=== PATIENT | female | born 1935 | race Caucasian/White ===

== ENCOUNTER 2021-12-15 10:08 | Inpatient (IN) | payer MEDICARE, MEDICAID ==
[~2021-12-15] VITALS: Ht 162.6 cm; Wt 69.4 kg
[~2021-12-15 10:08] MED LIST: CHOL200077 MT; CRAN400C MT; CYAN-33 PO; LISI2.5T47 MT; METF-414 MT; RISP05 MT; SITA50TA3 MT; TOPUD PO
[2021-12-15 12:47] LABS: BASOPHILS % 0.5 % (0.0-2.0); EOSINOPHILS % 1.4 % (0.0-5.0); HEMATOCRIT. 42.5 % (36.0-48.0); HEMOGLOBIN. 14.1 g/dL (12.0-16.0); LYMPHOCYTES % 17.5 % (20.0-50.0); MEAN CORPUSCULAR HEMOGLOBIN 27.5 pg (28.0-32.0); MEAN CORPUSCULAR VOLUME 82.9 fL (81.0-99.0); MEAN PLATELET VOLUME 9.4 fl (7.4-10.4); NEUTROPHILS % 73.6 % (40.0-76.0); PLATELET 274 x1000/uL (130-400); RED BLOOD CELL COUNT 5.13 mill/uL (4.2-5.4); RED CELL DISTRIBUTION WIDTH 12.7 % (11.6-14.6)
[2021-12-15 12:55] LABS: CHLORIDE 107 mEq/L (98-107)
[2021-12-15] MEDS ORDERED: HALOPERIDOL LACTATE 5MG/ML VIAL IM ONE (16:30)
[2021-12-16] MEDS: LORAZEPAM 2MG/ML CPJ IV PRN ×2 (02:38→11:44)
[2021-12-16] MEDS ORDERED: ONDANSETRON HCL 4MG/2ML INJ IV PRN (08:15)
[2021-12-16] MEDS ORDERED: ACETAMINOPHEN 325MG TABLET PO PRN (08:15)
[2021-12-16 09:14] VITALS: BP 149/60
[2021-12-16 09:30] VITALS: BP 149/60
[2021-12-16] MEDS: RISPERIDONE 1MG TABLET PO SCH ×2 (11:00→11:19)
[2021-12-16 12:00] VITALS: BP_SYST 159; BP_SYST 193; BP_DIAS 158; BP_DIAS 58
[2021-12-16 16:00] VITALS: BP 165/66
[2021-12-16] MEDS ORDERED: HYDRALAZINE 20MG/ML VIAL IV PRN (18:00)
[2021-12-16] MEDS: SODIUM CHLORIDE 0.45% 1,000 ML IV SCH (18:22)
[2021-12-16 20:00] VITALS: BP 118/61
[2021-12-17] VITALS: BP 144/65
[2021-12-17 04:00] VITALS: BP 123/74
[2021-12-17] MEDS: SODIUM CHLORIDE 0.45% 1,000 ML IV SCH ×2 (05:34→21:11)
[2021-12-17 08:00] VITALS: BP 134/71
[2021-12-17] MEDS: RISPERIDONE 1MG TABLET PO SCH (09:21)
[2021-12-17] MEDS: AMLODIPINE 10MG TABLET PO SCH (09:22)
[2021-12-17 12:00] VITALS: BP 153/73
[2021-12-17 16:00] VITALS: BP 129/51
[2021-12-17 16:30] LABS: BASOPHILS % 0.7 % (0.0-2.0); EOSINOPHILS % 1.7 % (0.0-5.0); HEMOGLOBIN. 13.8 g/dL (12.0-16.0); LYMPHOCYTES % 28.4 % (20.0-50.0); MEAN CORPUSCULAR HEMOGLOBIN 27.5 pg (28.0-32.0); MEAN CORPUSCULAR VOLUME 83.5 fL (81.0-99.0); MEAN PLATELET VOLUME 9.3 fl (7.4-10.4); MONOCYTES % 5.8 % (2.0-8.0); NEUTROPHILS % 63.4 % (40.0-76.0); PLATELET 241 x1000/uL (130-400); RED BLOOD CELL COUNT 5.03 mill/uL (4.2-5.4); RED CELL DISTRIBUTION WIDTH 12.7 % (11.6-14.6)
[2021-12-17 16:53] LABS: CHLORIDE 108 mEq/L (98-107)
[2021-12-17] MEDS ORDERED: DEXTROSE 50% WATER 50ML SYRINGE IV PRN (18:45)
[2021-12-17 20:00] VITALS: BP 149/70
[2021-12-17] MEDS: BLOOD SUGAR DIAGNOSTIC STRIP TEST SCH (21:11)
[2021-12-17] MEDS: INSULIN LISPRO 100 UNITS/ML SUBCUT SCH (21:12)
[2021-12-18] VITALS: BP 144/57
[2021-12-18] MEDS: LORAZEPAM 2MG/ML CPJ IV PRN ×2 (00:47→13:04)
[2021-12-18 04:00] VITALS: BP 160/76
[2021-12-18] MEDS: BLOOD SUGAR DIAGNOSTIC STRIP TEST SCH ×4 (06:06→20:45)
[2021-12-18] MEDS: INSULIN LISPRO 100 UNITS/ML SUBCUT SCH ×4 (06:16→20:49)
[2021-12-18 08:00] VITALS: BP 142/53
[2021-12-18] MEDS: AMLODIPINE 10MG TABLET PO SCH (08:54)
[2021-12-18] MEDS: RISPERIDONE 1MG TABLET PO SCH (08:54)
[2021-12-18] MEDS: SODIUM CHLORIDE 0.45% 1,000 ML IV SCH ×2 (09:38→23:07)
[2021-12-18 12:00] VITALS: BP 132/60
[2021-12-18 16:00] VITALS: BP 102/44
[2021-12-18 20:00] VITALS: BP 116/46
[2021-12-19] VITALS: BP 140/83
[2021-12-19 04:00] VITALS: BP 98/50
[2021-12-19] MEDS: BLOOD SUGAR DIAGNOSTIC STRIP TEST SCH ×4 (06:09→20:52)
[2021-12-19] MEDS: INSULIN LISPRO 100 UNITS/ML SUBCUT SCH ×4 (06:36→20:52)
[2021-12-19 07:27] LABS: BASOPHILS % 0.6 % (0.0-2.0); EOSINOPHILS % 1.7 % (0.0-5.0); HEMATOCRIT. 42.3 % (36.0-48.0); LYMPHOCYTES % 22.2 % (20.0-50.0); MEAN CORPUSCULAR HEMOGLOBIN 27.6 pg (28.0-32.0); MEAN CORPUSCULAR VOLUME 83.6 fL (81.0-99.0); MEAN PLATELET VOLUME 9.6 fl (7.4-10.4); MONOCYTES % 6.4 % (2.0-8.0); NEUTROPHILS % 69.1 % (40.0-76.0); PLATELET 215 x1000/uL (130-400); RED BLOOD CELL COUNT 5.06 mill/uL (4.2-5.4); RED CELL DISTRIBUTION WIDTH 12.8 % (11.6-14.6)
[2021-12-19 07:47] LABS: CHLORIDE 106 mEq/L (98-107)
[2021-12-19 08:00] VITALS: BP 126/61
[2021-12-19] MEDS: AMLODIPINE 10MG TABLET PO SCH (08:19)
[2021-12-19] MEDS: RISPERIDONE 1MG TABLET PO SCH (08:19)
[2021-12-19 12:00] VITALS: BP 136/64
[2021-12-19] MEDS: SODIUM CHLORIDE 0.45% 1,000 ML IV SCH (12:11)
[2021-12-19 16:00] VITALS: BP 112/48
[2021-12-19 20:31] VITALS: BP 141/59
[2021-12-20 00:32] VITALS: BP 148/72
[2021-12-20] MEDS: SODIUM CHLORIDE 0.45% 1,000 ML IV SCH ×2 (01:35→15:08)
[2021-12-20 04:00] VITALS: BP 119/62
[2021-12-20] MEDS: INSULIN LISPRO 100 UNITS/ML SUBCUT SCH ×4 (06:14→21:00)
[2021-12-20] MEDS: BLOOD SUGAR DIAGNOSTIC STRIP TEST SCH ×4 (06:14→21:54)
[2021-12-20 07:55] LABS: BASOPHILS % 0.7 % (0.0-2.0); EOSINOPHILS % 1.7 % (0.0-5.0); HEMATOCRIT. 40.8 % (36.0-48.0); HEMOGLOBIN. 13.6 g/dL (12.0-16.0); LYMPHOCYTES % 19.5 % (20.0-50.0); MEAN CORPUSCULAR HEMOGLOBIN 27.4 pg (28.0-32.0); MEAN CORPUSCULAR VOLUME 82.4 fL (81.0-99.0); MEAN PLATELET VOLUME 9.3 fl (7.4-10.4); MONOCYTES % 6.1 % (2.0-8.0); PLATELET 238 x1000/uL (130-400); RED BLOOD CELL COUNT 4.95 mill/uL (4.2-5.4)
[2021-12-20 08:16] LABS: CHLORIDE 107 mEq/L (98-107)
[2021-12-20 08:27] VITALS: BP 105/81
[2021-12-20] MEDS: AMLODIPINE 10MG TABLET PO SCH (08:28)
[2021-12-20] MEDS: RISPERIDONE 1MG TABLET PO SCH (08:29)
[2021-12-20] MEDS ORDERED: POTASSIUM CHLORIDE 20MEQ TABLET SR PO NR (10:30)
[2021-12-20 12:00] VITALS: BP 120/74
[2021-12-20 17:06] VITALS: BP 143/61
[2021-12-20] MEDS: LORAZEPAM 2MG/ML CPJ IV PRN (19:28)
[2021-12-20 20:00] VITALS: BP 131/94
[2021-12-21] VITALS (7 sets, daily range): BP systolic 121–166; BP diastolic 56–73
[2021-12-21] MEDS: SODIUM CHLORIDE 0.45% 1,000 ML IV SCH ×2 (03:47→18:25)
[2021-12-21] MEDS: BLOOD SUGAR DIAGNOSTIC STRIP TEST SCH ×4 (05:43→21:31)
[2021-12-21] MEDS: INSULIN LISPRO 100 UNITS/ML SUBCUT SCH ×4 (06:19→21:00)
[2021-12-21] MEDS: RISPERIDONE 1MG TABLET PO SCH (10:37)
[2021-12-21] MEDS: AMLODIPINE 10MG TABLET PO SCH (10:37)
[2021-12-21] MEDS ORDERED: RISP1 PO (11:02)
== END 2021-12-21 23:50 | DRG 71 ==
LOC: ER 10:23 → MICUSO 16:21 → 7EST 12-16 09:03
PROVIDERS: ADMIT Internal Medicine; ATTEND Internal Medicine
DX: G93.49 Other encephalopathy (principal); E44.0 Moderate protein-calorie malnutrition; F23 Brief psychotic disorder; E11.9 Type 2 diabetes mellitus without complications; I10 Essential (primary) hypertension; E78.5 Hyperlipidemia, unspecified; E78.00 Pure hypercholesterolemia, unspecified; Z88.8 Allergy status to other drugs, medicaments and biological substances; Z79.899 Other long term (current) drug therapy; Z79.1 Long term (current) use of non-steroidal anti-inflammatories (NSAID); Z68.26 Body mass index [BMI] 26.0-26.9, adult; Z78.1 Physical restraint status
CPT/HCPCS: 36415; 74018; 80048; 80053; 82962; 84145; 85025; 93005; 99285; J0360; J1630; J1815; J2060